=== PATIENT | female | born 1995 | race Caucasian/White ===

== ENCOUNTER 2020-07-03 00:14 | Inpatient (IN) | payer OTHER ==
--- NOTE | 2020-07-03 01:17 | NUR ---
pt was swabbed for covid 19 full ppe donned
--- NOTE | 2020-07-03 06:59 | PR ---
[facility] [address] [place] [address] [place] [place] [address] Signed Progress Notes IP Datetime Report Generated by CPN: 07/03/2020 06:59 PROGRESS NOTES: [id number] Plan: Continue Present Management Informed Consent Obtain: Vaginal Delivery; Section Delivery VITAL SIGNS: [id number] Vital Signs: Reviewed; Within Normal Limits EXAM: [id number] Dilatation: 7.0 Effacement: 95 Station: -2 Contractions: irregular q 2-6 min MEMBRANES: [id number] Membranes Status: Ruptured Amniotic Fluid Color: Clear Comments: 41 weeks gestation SROM at 0030 this morning Progressed to 6cm, received terbutaline for intolerance of labor Contractions now returning, 7cm dilated, intermittent decelerations as noted above. FETUS A: [id number] FHR Baseline: 135 Variability: Moderate 6-25bpm Accelerations: 15X15 Decelerations: Late; Variable; Prolonged FHR Category: Category II Presentation: Vertex Comments on Fetus A: FSE placed without difficulty FETUS B: [id number] Signing Physician: Duarte Christiansen DO Copies: ~ *Electronically Signed* 07/03/20 0659 DUARTE CHRISTIANSEN DO PATIENT NAME: BISHNU BRADSHAW PROGRESS NOTE DATE OF : 97 PHYSICIAN: DUARTE CHRISTIANSEN DO RPT #: [id number] REPORT IS CONFIDENTIAL AND NOT TO BE RELEASED WITHOUT AUTHORIZATION
--- NOTE | 2020-07-03 07:39 | PR ---
[facility] [address] [place], [place] [address] Signed Progress Notes IP Datetime Report Generated by CPN: 07/03/2020 07:39 PROGRESS NOTES: [id number] Impression: Non-reassuring Heart Rate Plan: Deliver- Section Informed Consent Obtain: Section Delivery VITAL SIGNS: [id number] Vital Signs: Reviewed; Within Normal Limits EXAM: [id number] Dilatation: 7.0 Effacement: 90 Station: -2 Contractions: irregular q 2-6 min MEMBRANES: [id number] Membranes Status: Ruptured Amniotic Fluid Color: Clear Comments: 41 weeks gestation required terbutaline initially for nonreassuring heart rate, recovered, then resumed recurrent lates with return of contractions. Risks, benefits, alternatives to reviewed with pt and FOB and they elected to proceed with delivery for nonreassuring heart rate FETUS A: [id number] FHR Baseline: 135 Variability: Moderate 6-25bpm Accelerations: 15X15 Decelerations: Late; Variable; Prolonged FHR Category: Category II Presentation: Vertex Comments on Fetus A: FSE placed without difficulty FETUS B: [id number] Signing Physician: Duarte Christiansen DO Copies: ~ *Electronically Signed* 07/03/20 0739 DUARTE CHRISTIANSEN DO PATIENT NAME: BISHNU BRADSHAW PROGRESS NOTE DATE OF : 97 PHYSICIAN: DUARTE CHRISTIANSEN DO [facility] [[email or web address]] #: [id number] REPORT IS CONFIDENTIAL AND NOT TO BE RELEASED WITHOUT AUTHORIZATION
--- NOTE | 2020-07-03 09:27 | NUR ---
07/03/20 0927 Sharon Odonnell 0919- PT ARRIVES TO [facility] ROOM #101. PT REPORTS NO PAIN, NAUSEA, OR DIZZINESS. RESP EVEN AND UNLABORED. OXYGEN SAT HIGH 90'S ON RA. 18G IV TO LEFT FOREARM IS INFUSING WNL WITH LR AND PITOCIN. PT REPORTS NO PAIN OR REDNESS TO THE SITE. PT'S SIGNIFICANT OTHER AT THE BEDSIDE WITH BABY.
--- NOTE | 2020-07-05 10:53 | PR ---
[facility] [address] [place], [place] [address] Signed PP Progress Notes Datetime Report Generated by CLIFFORD: 07/05/2020 10:53 SUBJECTIVE: [id number] Pain: Within Normal Limits Nausea/Vomiting: Denies Flatus: Yes Bowel Movement: No Vital Signs: [id number] Vital Signs: Reviewed; Within Normal Limits EXAM: Ongoing Cardiovascular: Normal Respiratory: Normal Abdomen/Uterus: Normal Lochia: Normal Breasts: Normal Extremities: Normal Incision: Normal Progress: Normal Exam Comments: RRR, no pallor, no dyspnea Incision c/d/i, FFBU No extremity edema IMPRESSION/PLAN/PROCEDURES: [id number] Impression: Normal Progression Plan: Remove [place]; Discharge Procedures: None Progress Notes: POD#2 s/p PLTCS for nonreassuring heart tones Hgb 9.8 POD#1, awaiting BM Pain well controlled, lochia light, incision c/d/i S/p varicella immunization for varicella non-immune status well, left nipple soreness DC to home today, normal DC precautions reviewed Desires IUD for contraception/ cycle control Plan follow-up via telemedicine in 2 weeks, in-person in 6 weeks or sooner if needed Signing Physician: Duarte Christiansen DO *Electronically Signed* 07/05/20 1053 DUARTE CHRISTIANSEN DO PATIENT NAME: BISHNU BRADSHAW PROGRESS NOTE DATE OF : 97 PHYSICIAN: DUARTE CHRISTIANSEN DO RPT #: [id number] REPORT IS CONFIDENTIAL AND NOT TO BE RELEASED WITHOUT AUTHORIZATION [address], [place] [address] Signed Copies: ~ *Electronically Signed* 07/05/20 1053 DUARTE CHRISTIANSEN DO PATIENT NAME: BISHNU BRADSHAW PROGRESS NOTE DATE OF : 97 PHYSICIAN: DUARTE CHRISTIANSEN DO RPT #: [id number] REPORT IS CONFIDENTIAL AND NOT TO BE RELEASED WITHOUT AUTHORIZATION
--- NOTE | 2020-07-06 19:53 | OR ---
[facility] [address] [place], [place] [address] Signed DATE OF OPERATION: 07/03/2020 SURGEON: Duarte Christiansen DO STAFF RESEARCH SCIENTIST: TAWANDA Flynn DO PREOPERATIVE DIAGNOSIS: Non-reassuring heart tones, 41 weeks gestation, spontaneous rupture of membranes. POSTOPERATIVE DIAGNOSES: 1. Non-reassuring heart tones, 41 weeks gestation, spontaneous rupture of membranes. 2. Occiput posterior position. OPERATIVE PROCEDURE: Primary low-transverse . DRAINS: Chapman. LINES: None. ESTIMATED BLOOD LOSS: 500 mL. FINDINGS: Normal-appearing uterus, tubes, and ovaries. Viable term male weighing 7 pounds 3 ounces, in the left occiput posterior position. INDICATION: The patient is a 24-year-old, G3, P0-0-2-0 at 41 weeks gestation, who presented with complaints of contractions and rupture of membranes. She was admitted and progressed spontaneously to 6 cm at which point she began having variable and late decelerations. She was given terbutaline and status recovered, but when contractions resumed, she began again having recurrent late decelerations. Risks, benefits, and alternatives to were discussed with the patient and father of the baby. Their questions were answered to the best of my ability to their apparent satisfaction and they elected to proceed with primary low-transverse . Electronically Signed By: DUARTE CHRISTIANSEN DO 07/06/201952 PATIENT NAME: BISHNU BRADSHAW OPERATIVE REPORT DATE OF : [birth year] REPORT #: [id number] PHYSICIAN: DUARTE CHRISTIANSEN DO PCP: NO PRIMARY CARE PHYSICIAN REPORT IS CONFIDENTIAL AND NOT TO BE RELEASED WITHOUT AUTHORIZATION [facility] [address] [place], [place] [address] Signed DESCRIPTION OF PROCEDURE: The patient was taken back to the operating room. She was given 2 g Ancef as well as 500 mg azithromycin. Her epidural was bolused and she was prepped and draped in the normal sterile fashion. Epidural anesthesia was confirmed to be adequate. Pfannenstiel incision was made and carried down to the underlying layer of fascia. The fascial excision was extended with Hillman scissors laterally. Inferior margin of the fascia was then grasped and elevated with Taylor clamps. Underlying rectus muscle was dissected off bluntly and sharply with Hillman scissors. Inferior margin was then released and superior margin was grasped, elevated, and in a similar fashion the underlying rectus muscle was dissected off bluntly and sharply with Hillman scissors. Superior margin was release. The peritoneum was then entered bluntly and extended with lateral traction. Stanislav retractor was inserted without difficulty. Incision was made in the lower uterine segment just above the vesicouterine reflection. Baby's head was found to be well engaged in the pelvis and was elevated with assistance of Dr. Flynn to the level of the incision. Remainder of infant was then easily delivered through the incision and cord was immediately doubly clamped and cut and baby was handed off to waiting nursery team. Segment of cord was collected for cord gases. Cord blood was collected for type and Eliz. Placenta delivered easily with manual expression. Uterus was cleared of clots and membranes. Right apex of the incision was tagged with 0 Monocryl and then uterus was closed in 2 layers, first with 0 monocryl in a running locked fashion and secondly in an imbricating manner with 0 Monocryl. Persistent oozing was noted just lateral to the right apex where the serosa had torn and extended into the broad ligament. Amrita was applied to the oozing serosal margin and 0 monocryl in a figure of eight fashion was used to reapproximate the margins, with satisfactory hemostasis resulting. Pelvis was suction irrigated with warm sterile saline. Stanislav retractor was removed and ACell sheet was applied over the hysterotomy. Peritoneum was then closed in a running fashion with 2-0 Vicryl. Rectus muscles reapproximated at midline with 0 Vicryl in a simple interrupted fashion. Rectus muscle and overlying fascia were examined for perforating vessels. Excellent hemostasis was noted. ACell powder was applied over the rectus muscle. The fascia was then closed in a running fashion working left to right. Subcutaneous layer was inspected for perforating vessels, which were cauterized with Bovie cautery. The subcutaneous layer was suction irrigated and still noted to be hemostatic. Remaining Amrita powder was applied to the subcutaneous layer and skin was closed with jose martin. Sponge and instrument counts were correct. The patient was taken to her LDRP room where she continued to recover Electronically Signed By: DUARTE CHRISTIANSEN DO 07/06/201952 PATIENT NAME: BISHNU BRADSHAW OPERATIVE REPORT DATE OF : 97 REPORT #: [id number] PHYSICIAN: DUARTE CHRISTIANSEN DO PCP: NO PRIMARY CARE PHYSICIAN REPORT IS CONFIDENTIAL AND NOT TO BE RELEASED WITHOUT AUTHORIZATION [address] [address] Signed with baby skin to skin in excellent condition. Duarte Christiansen DO EMZ/MODL /[id number] Copies: ~ Electronically Signed By: DUARTE CHRISTIANSEN DO 07/06/201952 PATIENT NAME: BISHNU BRADSHAW OPERATIVE REPORT DATE OF : [birth year] REPORT #: [id number] PHYSICIAN: DUARTE CHRISTIANSEN DO PCP: NO PRIMARY CARE PHYSICIAN REPORT IS CONFIDENTIAL AND NOT TO BE RELEASED WITHOUT AUTHORIZATION
== END 2020-07-05 11:55 | disposition home or self-care (01) | DRG 787 ==
LOC: FBCO 00:14 → FBC 00:46
PROVIDERS: ADMIT Obstetrics & Gynecology; ATTEND Obstetrics & Gynecology
PROC: 00HU33Z Insertion of Infusion Device into Spinal Canal, Percutaneous Approach (ICD-10-PCS; 2020-07-03)
PROC: 3E0R3BZ Introduction of Anesthetic Agent into Spinal Canal, Percutaneous Approach (ICD-10-PCS; 2020-07-03)
PROC: 10D00Z1 Extraction of Products of Conception, Low, Open Approach (ICD-10-PCS; principal; 2020-07-03 08:30)
PROC: 3E0234Z Introduction of Serum, Toxoid and Vaccine into Muscle, Percutaneous Approach (ICD-10-PCS; 2020-07-05)
DX: O64.0XX0 Obstructed labor due to incomplete rotation of fetal head, not applicable or unspecified (principal); O99.324 Drug use complicating childbirth; O76 Abnormality in fetal heart rate and rhythm complicating labor and delivery; Z20.822 Contact with and (suspected) exposure to COVID-19; Z3A.41 41 weeks gestation of pregnancy; Z37.0 Single live birth; O99.334 Smoking (tobacco) complicating childbirth; F17.210 Nicotine dependence, cigarettes, uncomplicated; O99.314 Alcohol use complicating childbirth; F12.90 Cannabis use, unspecified, uncomplicated; F14.90 Cocaine use, unspecified, uncomplicated; Z23 Encounter for immunization; Z86.19 Personal history of other infectious and parasitic diseases
CPT/HCPCS: 01961; 36415; 82803; 85027; 90716; C9803; J0456; J0690; J1100; J1885; J2001; J2274; J2405; J2590; J2765; J7060; J7121; U0003